=== PATIENT | female | born 1965 | race African-American/Black ===

== ENCOUNTER 2016-04-06 05:18 | Emergency (ER) | payer OTHER ==
[~2016-04-06] VITALS: Ht 165.1 cm; Wt 63.0 kg
--- NOTE | ~2016-04-06 | EKG ---
[place] [address] [facility] [place] [address] ELECTROCARDIOGRAM REPORT Name: EVERARDO SAMUELS Room #: DEP VIDYA Tellez#: [id number] Admission: 04/06/16 Attend Phys: Discharge: 04/06/16 Date of : 69 Report #: [id number] THIS REPORT FOR: //name// [facility] ED Test Date: 2016-04-06 Test Time: 05:22:14 Pat Name: EVERARDO SAMUELS Department: Room: Gender: F [employer] Sprayer: ARMEN : 1965 Requested By: Alejandra Baer Order Number: [id number] MD: El South Measurements Intervals [place] Rate: 61 P: 33 W[place]: 119 QRS: 41 QRSD: 90 T: 25 QT: 431 QTc: 434 Interpretive Statements Sinus rhythm Borderline short [place] interval No previous ECG available for comparison Electronically Signed On 04-06-2016 7:50:26 [employer] by El South [email or web address] <ELECTRONICALLY SIGNED> By: El South MD, [facility] 04/06/16 0750 0522 0522 El South MD, FACC /EPI
[~2016-04-06 05:18] MED LIST: AMOXICILLIN500 M1 PO; CALCIUM 600 +1 EAC1 PO; CIPRODEX OTIC7.5 ML OTIC; CLARITIN10 MG PO; FLONASE 0.05%50 MCG NASAL; IBUPROFEN 800800 MG PO; LIDODERM 5%1 PATC1 TRANSDERM; NAPROSYN500 MG PO; PRILOSEC OTC20 MG PO; VENTOLIN HFA 1818 GM INH
[2016-04-06 05:45] LABS: ABSOLUTE NEUTROPHILS 2.8 thou/uL (1.4-8.2); BASOPHILS 1.3 % (0.0-2.0); EOSINOPHILS 17.3 % (0.0-3.0); HEMATOCRIT 37.3 % (37.0-47.0); HEMOGLOBIN 12.7 gm/dL (12.0-15.0); LYMPHOCYTES 35.6 % (24.0-44.0); MCH 30.4 pg (26.0-34.0); MCV 89.4 fL (80.0-100.0); MONOCYTES 10.2 % (1.0-8.0); PLATELET COUNT 287 thou/uL (150-400); POLYS 35.6 % (36.0-66.0); RBC 4.17 mil/uL (4.20-5.00); RDW 14.2 % (10.5-14.5); WBC 7.9 thou/uL (4.0-11.0)
[2016-04-06 05:50] LABS: MANUAL DIFF NO
[2016-04-06 05:56] LABS: APTT 24.3 Seconds (24.5-32.8); PROTIME 10.2 Seconds (9.3-11.4)
[2016-04-06 05:59] LABS: ANION GAP 7 mmol/L (7-16); BUN 19 mg/dL (7-18); CALCIUM 9.4 mg/dL (8.5-10.1); CHLORIDE 103 mmol/L (98-107); CO2 29 mmol/L (21-32); GLUCOSE 94 mg/dL (70-99); POTASSIUM 4.5 mmol/L (3.5-5.1); SODIUM 139 mmol/L (136-145)
[2016-04-06 06:11] LABS: ALBUMIN 3.7 g/dL (3.4-5.0); ALKALINE PHOSPHATASE 73 U/L (46-116); NT-PRO BRAIN NAT PEPTIDE 57 pg/mL (<300); SGOT 7 U/L (15-37); SGPT 15 U/L (30-65); TOTAL BILIRUBIN 0.3 mg/dL (<0.1-1.0); TOTAL PROTEIN 7.5 g/dL (6.4-8.2); TROPONIN-I < 0.04 ng/mL (<0.04-0.07)
[2016-04-06] MEDS ORDERED: NORCO 5-325 TA1 EACH PO (06:41)
[2016-04-06 07:06] VITALS: BP 125/84
== END 2016-04-06 07:09 | disposition home or self-care (01) ==
LOC: ER 05:18
PROVIDERS: Emergency Medicine
DX: R09.1 Pleurisy (principal); J06.9 Acute upper respiratory infection, unspecified; I10 Essential (primary) hypertension; F17.210 Nicotine dependence, cigarettes, uncomplicated; F10.99 Alcohol use, unspecified with unspecified alcohol-induced disorder